=== PATIENT | male | born 1975 | race American Indian/Alaskan Native ===

== ENCOUNTER 2019-03-13 10:24 | Emergency (ER) | payer SELFPAY ==
--- NOTE | 2019-03-13 11:22 | XRay Report ---
. LEFT FOREARM 2 VIEWS INDICATION / CLINICAL INFORMATION: Nail gun injury to left forearm. COMPARISON: None available. FINDINGS: A radiopaque metallic foreign body nail is embedded within the distal third left ulna shaft with smal l fracture seen along the dorsal aspect of the ulna with associated soft tissue swelling. No acute fr acture seen within the left radius. There is an old avulsion fracture of the distal ulna. Signer Name: Lowell Foster MD Signed: 03/13/2019 11:17 AM Workstation Name: [id number]
[2019-03-13] MEDS ORDERED: oxyCODONE /ACETAMINOPHEN 5-325MG TAB PO ONE (11:41)
[2019-03-13] MEDS ORDERED: TETANUS,DIPH,PERTUSS(ACELL) VACCINE 0.5 ML SYRINGE IM ONE (11:41)
[2019-03-13] MEDS ORDERED: SULFAMETHOXAZOLE/TRIMETHOPRIM 800/160MG DS TAB PO ONE (11:41)
--- NOTE | 2019-03-13 12:11 | Emergency Department Report ---
HPI - General Chief Complaint: Extremity Injury, Upper Time Seen by Provider: 03/13/19 11:35 - HPI HPI: 43-year-old male presents to the emergency department with the complaint of left forearm pain after he accidentally shot a nail into the forear m from a nail gun. X-rays were done through triage and it shows an embedded nail into the left ulna with a subsequent fracture. He is right-hand dominant. The nail is not visible in the soft tissue. He has complaints of pain and some paresthesias. No other past medical history. ED Past Medical Hx - Past Medical History Previous Medical History?: No - Surgical History Past Surgical History?: Yes Additional Surgical History: Hernia repair - Social History Smoking Status: Current Some Day Smoker Substance Use Type: None ED Review of Systems ROS: Stated complaint: NAIL GUN INJURED ARM Other details as noted in HPI Comment: All other systems reviewed and negative Constitutional: denies: chills, fever Musculoskeletal: arthralgia, myalgia Neurological: paresthesias. denies: weakness Physical Exam - Physical Exam Vital Signs: Vital Signs 03/13/19 10:29 Temperature 97.9 F Pulse Rate 80 Respiratory 16 Rate Blood Pressure 142/91 O2 Sat by Pulse 99 Oximetry Physical Exam: GENERAL: The patient is well-developed well-nourished. HENT: Normocephalic. Atraumatic. Patient has moist mucous membranes. EYES: Extraocular motions are intact. NECK: Supple. Trachea is midline. CHEST/LUNGS: Clear to auscultation. There is no respiratory distress noted. HEART/CARDIOVASCULAR: Regular. There is no tachycardia. There is no murmur. ABDOMEN: Abdomen is soft, nontender. Patient has normal bowel sounds. There is no abdominal distention. SKIN: Skin is warm and dry. There is a small punctate wound or opening to the distal volar left forearm that was most likely the entrance of the nail. NEURO: The patient is awake, alert, and oriented. The patient is cooperative. The patient has no focal neurologic deficits. Normal speech. MUSCULOSKELETAL: Tenderness to palpation to the left mid to distal forearm. Radial pulse +2 over 4 and capillary refill less than 2 seconds. ED Course Vital Signs 03/13/19 10:29 Temperature 97.9 F Pulse Rate 80 Respiratory 16 Rate Blood Pressure 142/91 O2 Sat by Pulse 99 Oximetry - Consultations Consultation #1: I spoke with the orthopedist consulting utility forester at [facility], Dr. Sanchez, who has accepted the patient for transfer to the emergency department. 03/13/19 12:11 ED Medical Decision Making - Radiology Data Radiology results: image reviewed interpreted by me: X-ray of the left forearm shows a radiopaque foreign body, consistent with a nail, that is in the soft tissue of the distal left forearm and is also embedded within the ulnar shaft with a dorsal fracture - Medical Decision Making Patient resents with left forearm pain after he accidentally shot himself in the forearm with a nail gun. X-ray shows the nail embedded in the distal ulnar shaft with a small area of fracture towards the dorsal part of the bone. There is a small opening or abrasion to the volar forearm that is most likely the entrance of the nail. Given the fracture and this wound, this is considered an open fracture. He has capillary refill less than 2 seconds and radial pulse +2 over 4 to the affected left upper extremity. He does complain of some paresthesias and numbness to the hand. For all these reasons, and since we do not have orthopedics consulting utility forester at this time, the patient will be transferred to [facility] for further evaluation and treatment and was accepted by the orthopedist consulting utility forester. - Differential Diagnosis fracture, foreign body, contusion Critical Care Time: No Critical care attestation.: If time is entered above; I have spent that time in minutes in the direct care of this critically ill patient, excluding procedure time. ED Disposition Clinical Impression: Injury by nail gun Qualifiers: Encounter type: initial encounter Qualified Code(s): W29.4XXA - Contact with nail gun, initial encounter Ulnar shaft fracture Qualifiers: Encounter type: initial encounter Fracture type: closed Fracture morphology: unspecified fracture morphology Laterality: left Qualified Code(s): S52.202A - Unspecified fracture of shaft of left ulna, initial encounter for closed fracture Hypertension Qualifiers: Hypertension type: essential hypertension Qualified Code(s): I10 - Essential (primary) hypertension Disposition: DC/TX-70 ANOTHER TYPE HLTHCARE Is pt being admited?: No Condition: Stable Time of Disposition: 14:18
[2019-03-13] MEDS ORDERED: MORPHINE 2 MG/1 ML INJ ONE (12:36)
[2019-03-13] MEDS ORDERED: MORPHINE 2 MG/1 ML INJ IV ONE (12:36)
[2019-03-13] MEDS ORDERED: ONDANSETRON 4 MG/2 ML INJ ONE (12:36)
[2019-03-13] MEDS ORDERED: ONDANSETRON 4 MG/2 ML INJ IV ONE (12:36)
[2019-03-13 14:39] VITALS: BP 122/80
== END 2019-03-13 14:51 | disposition other institution (70) ==
LOC: ED 10:24
DX: S52.202A Unspecified fracture of shaft of left ulna, initial encounter for closed fracture (principal); I10 Essential (primary) hypertension; W29.4XXA Contact with nail gun, initial encounter; Y93.89 Activity, other specified; Y92.89 Other specified places as the place of occurrence of the external cause; Y99.8 Other external cause status
CPT/HCPCS: 73090; 90471; 90715; 96365; 96375; 99285; J0690; J2270; J2405